=== PATIENT | female | born 1965 | race Caucasian/White ===

== ENCOUNTER → 2023-05-06 | Emergency (ER) | payer OTHER ==
[~2023-05-06] VITALS: Ht 167.6 cm; Wt 113.4 kg
[~2023-05-06] MED LIST: ADDERALL 10 MG10 MG
== END | disposition home or self-care (01) ==
LOC: ER 17:43
PROVIDERS: General Practice
DX: F18.9 Inhalant use, unspecified (principal); R11.10 Vomiting, unspecified; I10 Essential (primary) hypertension